=== PATIENT | female | born 1950 | race Caucasian/White ===

== ENCOUNTER 2020-06-16 07:08 | Day surgery (SDC) | payer MEDICARE ==
[2020-06-11 15:48] VITALS: BMI 26.6
[~2020-06-16 07:08] MED LIST: LACTATED RINGERS 1,000 ML IV SCH
[2020-06-16 07:45] VITALS: RESP 16; TEMP 99
[2020-06-16] MEDS ORDERED: LIDOCAINE 1% (10MG/ML) FOR IV START INTRADERMA ONE (07:55)
[2020-06-16] MEDS ORDERED: LIDOCAINE 1% INJ 10MG/ML (20 ML MDV) ONE (08:05)
[2020-06-16] MEDS ORDERED: PROPOFOL 10 MG/ML 20 ML VIAL IV ONE (08:05)
--- NOTE | 2020-06-16 08:08 | P.GSHP ---
History of Present Illness H&P Date: 06/16/20 Chief Complaint: GERD 69-year-old female having epigastric pain and reflux. Intermittent episodes of dysphagia. Episodes will last at times up to 1 week induration. Previous EGD showed moderate hiatal hernia. Past Medical History Past Medical History: GERD/Reflux, Hyperlipidemia, Hypertension Additional Past Medical History / Comment(s): hiatal hernia History of Any Multi-Drug Resistant Organisms: None Reported Past Surgical History: Joint Replacement Additional Past Surgical History / Comment(s): rectal prolapse, rt knee repl aced,jaleel cataracts Past Anesthesia/Blood Transfusion Reactions: No Reported Reaction Smoking Status: Former smoker - Past Family History Mother Family Medical History: No Reported History Medications and Allergies Home Medications Medication Instructions Recorded Confirmed Type Aspirin EC [Ecotrin Low Dose] 81 mg PO DAILY 06/11/20 06/11/20 History Fenofibrate [Lofibra] 160 mg PO DAILY 06/11/20 06/11/20 History LORazepam [Ativan] 1 mg PO BID 06/11/20 06/11/20 History Losartan [Cozaar] 50 mg PO QAM 06/11/20 06/11/20 History Metoclopramide [Reglan] 5 mg PO DAILY 06/11/20 06/11/20 History [place]-3 Fatty Acids/Fish Oil [Fish 1 each PO DAILY 06/11/20 06/11/20 History Oil 1,000 mg Softgel] Omeprazole 20 mg PO DAILY 06/11/20 06/11/20 History PARoxetine HCL [Paxil] 40 mg PO DAILY 06/11/20 06/11/20 History Sucralfate [Carafate] 1 gm PO TID 06/11/20 06/11/20 History Venlafaxine HCl [Effexor XR] 37.5 mg PO QAM 06/11/20 06/11/20 History Allergies Allergy/AdvReac Type Severity Reaction Status Date / Time amantadine [From Symmetrel] Allergy lip Verified 06/16/20 07:40 swelling Surgical - Exam Vital Signs Temp Pulse Resp BP Pulse Ox 99.0 F 73 16 153/86 95 06/16/20 07:42 06/16/20 07:42 06/16/20 07:42 06/16/20 07:42 06/16/20 07:42 Physical exam: General: Well-developed, well-nourished HEENT: Normocephalic, sclerae nonicteric Abdomen: Nontender, nondistended Extremities: No edema Neuro: Alert and oriented Assessment and Plan (1) GERD (gastroesophageal reflux disease) Narrative/Plan: Will proceed with upper endoscopy at this time Current Visit: Yes Status: Acute Code(s): K21.9 - GASTRO-ESOPHAGEAL REFLUX DISEASE WITHOUT ESOPHAGITIS SNOMED Code(s): 431367561
--- NOTE | 2020-06-16 08:17 | P.PCN ---
Date of Procedure: 06/16/20 Procedure(s) Performed: Preoperative Dx: GERD, epigastric pain Postoperative Dx: Moderate sized hiatal hernia, tortuous esophagus, mild gastritis Procedure: EGD with Bx Anesthesia: Sedation Endoscopist: Dr. Henry Specimens: Antrum Endoscopic Procedure: The patient was on the endoscopy table in the left de cubitus position. The Olympus gastroscope was inserted into the oropharynx and passed under direct visualization to the region of the third portion of the duodenum. From that point the scope was slowly withdrawn inspecting all surfaces carefully. There were no neoplastic inflammatory or polypoid lesions throughout the duodenum. The pylorus was widely patent. The stomach was carefully inspected. There was mild gastritis present. A biopsy of the antrum took place to rule out H. pylori. Retroflexion revealed a moderate sized hiatal hernia. The GE junction was present 5 cm above the diaphragmatic hiatus. The esophagus was free of inflammatory changes however did have significant tortuosity. The patient was then taken to the recovery room in stable condition per anesthesia guidelines. Recommendations: Await biopsy results. Continue antiacid therapy. Continue workup. Likely will proceed with CT chest and abdomen given the patient's complaints of pain lasting for 1 week at a time. Ultrasound abdomen if this has not already been performed to evaluate for gallstones as well. Will discuss surgical repair options with the patient regarding the hiatal hernia.
[2020-06-16 08:35] VITALS: BP 142/89; PULSE 63
== END 2020-06-16 09:00 | disposition home or self-care (01) ==
LOC: ORWHC2ENDO 07:08
PROVIDERS: ATTEND Surgery
DX: K29.50 Unspecified chronic gastritis without bleeding (principal); K44.9 Diaphragmatic hernia without obstruction or gangrene; Z90.710 Acquired absence of both cervix and uterus; Z98.890 Other specified postprocedural states; K21.9 Gastro-esophageal reflux disease without esophagitis; E78.5 Hyperlipidemia, unspecified; I10 Essential (primary) hypertension; Z98.42 Cataract extraction status, left eye; Z98.41 Cataract extraction status, right eye; Z96.651 Presence of right artificial knee joint; Z87.891 Personal history of nicotine dependence; Z79.82 Long term (current) use of aspirin; Z79.899 Other long term (current) drug therapy; Z88.3 Allergy status to other anti-infective agents
CPT/HCPCS: 88305; 43239; J2001; J2704

== ENCOUNTER → 2020-06-25 | Outpatient (CLI) | payer MEDICARE ==
--- NOTE | 2020-06-25 19:26 | CT ---
EXAMINATION TYPE: CT chest abdomen w con DATE OF EXAM: 06/25/2020 INDICATION: Abdominal pain COMPARISON: None CT DLP: 496.1 mGycm CONTRAST: Performed with Oral Contrast and with IV Contrast, patient injected with 100 mL of Isovue 300. TECHNIQUE: Axial images at 5 mm thick sections. Reconstructed images in the coronal plane. Delayed images through the kidneys. FINDINGS: CT CHEST: Portion of the thyroid visualized is normal. There is a 0.3 cm peripheral nodule anterior right lung. Series 4 image 17. No enlarged mediastinal or hilar adenopathy is evident. The ascending aorta diameter at the level of the main pulmonary artery is 2.1 cm. The main pulmonary artery diameter at the bifurcation is 2.4 cm. There is a moderate size hiatal hernia. Reflux into the distal esophagus is evident. CT ABDOMEN: Liver: Normal Spleen: Normal Pancreas: Normal Adrenal glands: The adrenal glands are normal. Gallbladder: Normal Kidneys: No masses are evident. No hydronephrosis is present. No cysts are present. Delayed images were obtained through the kidneys, which remain unremarkable. Aorta: Normal Inferior vena cava: Normal. Loops of bowel within the abdomen and upper pelvis are normal. There are loops of bowel which are incompletely distended or lack oral contrast limiting their evaluation. IMPRESSIONS: 1. Moderately large hiatal hernia with reflux into the distal esophagus. 2. 0.3 cm punctate peripheral pleural-based nodule right anterior lung. Follow-up exam in 6-12 months is recommended
== END | disposition home or self-care (01) ==
LOC: RADCTMAIN 08:12
PROVIDERS: ATTEND Surgery
DX: K44.9 Diaphragmatic hernia without obstruction or gangrene (principal); R91.1 Solitary pulmonary nodule
CPT/HCPCS: 82565; 84520; 71260; 74160; 36415; Q9967

== ENCOUNTER → 2020-07-20 | Outpatient (CLI) | payer MEDICARE | END | disposition home or self-care (01) | LOC: LABWHC1 09:58 | PROVIDERS: ATTEND Surgery | DX: Z20.828 Contact with and (suspected) exposure to other viral communicable diseases (principal) | CPT/HCPCS: U0003; C9803 ==

== ENCOUNTER 2020-08-04 12:24 | Inpatient (IN) | payer MEDICARE ==
--- NOTE | 2020-08-04 14:18 | XR ---
EXAMINATION TYPE: XR chest 2V DATE OF EXAM: 08/04/2020 COMPARISON: NONE HISTORY: Shortness of breath TECHNIQUE: Frontal and lateral views of the chest are obtained. FINDINGS: Scattered senescent parenchymal changes noted. Hyperinflation compatible with COPD. Patchy left perihilar and left lower lobe infiltrates suspicious for Covid 19 pneumonia. Heart size is stable. Mediastinal structures are stable and grossly unremarkable. No evidence for hilar prominence. Degenerative changes dorsal spine. IMPRESSION: 1. Patchy left perihilar and left lower lobe infiltrates suspicious for Covid 19 pneumonia.
[2020-08-04] MEDS ORDERED: SODIUM CHLORIDE 0.9% 500 ML 500 ML IV ONE (14:19)
[2020-08-04] MEDS ORDERED: LEVOFLOXACIN 750MG-D5W PMX 750 MG in DEXTROSE/WATER 1 150ML.BAG IVPB STA (14:27)
[2020-08-04] MEDS ORDERED: CEFEPIME 1 GM in SODIUM CHLORIDE 0.9% 50 ML IVPB STA (14:27)
[2020-08-04] MEDS ORDERED: VANCOMYCIN IV PER PHARMACY 1 EACH MISC MISCELLANE PRN (14:27)
[2020-08-04] MEDS ORDERED: VANCOMYCIN 1,250 MG in SODIUM CHLORIDE 0.9% 250 ML IVPB ONE (14:45)
--- NOTE | 2020-08-04 14:49 | ED ---
URI HPI - General Chief Complaint: Upper Respiratory Infection Stated Complaint: Nausea, vomiting, weakness Time Seen by Provider: 08/04/20 13:53 Source: patient Mode of arrival: wheelchair Limitations: no limitations - History of Present Illness Initial Comments: 69yo female wiht history of recent hiatal hernia repair 07/22 at [facility] referred there by Dr. Goodman presenting to the ER today for multiple complaints. Patient sates that since the surgery she has had vomiting when eating, diarrhea. Patient states that she had developed a cough as well 2 days after the surgery. Denies leg swelling, hemoptysis. admits to SOB at times. Denies chest pain or pain with deep inspiration. Pt states she has gradually become more and more weak. She denies syncope/presyncope. Denies recording fever but states she has had chills. Patient denies bloody stools, blood in vomit. Admits to some upper abdominal discomfort at time. Patient denies lower abdominal pain. Patient denies drainage from the incision site. Patient appears well nontoxic on arrival. However 92% oxygen levels. - Related Data Home Medications Medication Instructions Recorded Confirmed Aspirin EC [Ecotrin Low Dose] 81 mg PO DAILY 06/11/20 08/04/20 Fenofibrate [Lofibra] 160 mg PO DAILY 06/11/20 08/04/20 LORazepam [Ativan] 1 mg PO BID 06/11/20 08/04/20 Losartan [Cozaar] 50 mg PO QAM 06/11/20 08/04/20 Metoclopramide [Reglan] 5 mg PO DAILY 06/11/20 08/04/20 [place]-3 Fatty Acids/Fish Oil [Fish 1 each PO DAILY 06/11/20 08/04/20 Oil 1,000 mg Softgel] Omeprazole 20 mg PO DAILY 06/11/20 08/04/20 PARoxetine HCL [Paxil] 40 mg PO DAILY 06/11/20 08/04/20 Sucralfate [Carafate] 1 gm PO TID 06/11/20 08/04/20 Venlafaxine HCl [Effexor XR] 37.5 mg PO QAM 06/11/20 08/04/20 Acetaminophen Tab [Tylenol] 500 mg PO DAILY PRN 08/04/20 08/04/20 Allergies Allergy/AdvReac Type Severity Reaction Status Date / Time amantadine [From Symmetrel] Allergy lip Verified 08/04/20 16:15 swelling hydrocodone Allergy Itching Verified 08/04/20 16:15 Review of Systems ROS Statement: Those systems with pertinent positive or pertinent negative responses have been documented in the HPI. ROS Other: All systems not noted in ROS Statement are negative. Past Medical History Past Medical History: GERD/Reflux, Hyperlipidemia, Hypertension Additional Past Medical History / Comment(s): hiatal hernia History of Any Multi-Drug Resistant Organisms: None Reported Past Surgical History: Hernia Repair, Joint Replacement Additional Past Surgical History / Comment(s): rectal prolapse, rt knee replaced,jaleel cataracts Past Anesthesia/Blood Transfusion Reactions: No Reported Reaction Past Psychological History: Anxiety Smoking Status: Former smoker Past Alcohol Use History: None Reported Past Drug Use History: None Reported - Past Family History Mother Family Medical History: No Reported History General Exam - General Exam Comments Initial Comments: General: The patient is awake and alert, in no distress Eye: Pupils are equal, round and reactive to light, extra-ocular movements are intact. No nystagmus. There is normal conjunctiva bilaterally. No signs of icterus. Ears, nose, mouth and throat: There are moist mucous membranes and no oral lesions. Neck: The neck is supple, there is no tenderness or JVD. Cardiovascular: There is a regular rate and rhythm. No murmur, rub or gallop is appreciated. Respiratory: Lungs are clear to auscultation, respirations are non-labored, breath sounds are equal. No wheezes, stridor, rales, or rhonchi. Gastrointestinal: Soft, non-distended, non-tender abdomen without masses or organomegaly noted. There is no rebound or guarding present. Musculoskeletal: Normal ROM, no tenderness. Strength 5/5. Sensation intact. Radial pulses equal bilaterally 2+. Neurological: A&O x 3. CN II-XII intact, There are no obvious motor or sensory deficits. Coordination appears grossly intact. Speech is normal. Skin: Skin is warm and dry and no rashes or lesions are noted. Incision, no d rainage or redness. Psychiatric: Cooperative, appropriate mood & affect, normal judgment. Limitations: no limitations Course Vital Signs 08/04/20 08/04/20 13:09 15:41 Temperature 99.0 F Pulse Rate 91 Respiratory 22 16 Rate Blood Pressure 128/74 O2 Sat by Pulse 92 L Oximetry Medical Decision Making - Medical Decision Making Leukocytosis, PNA on CXR> CTA no PE. But concern for esophageal cancer/esophageal thicking/obstruction. [facility]. Spoke with Jalen patient surgeon reading report verbatim. He did not feel this was cancer/obstruction at this time. He recommen ded, liquid diet, raised bed during/after eating x 1 hours, counseling on slow eating, treatment of nausea, he refused transfer but provided phone number in further recommendations are needed [phone] (personal cell). Recommended admission here for treatment of aspiration pneumonia with speech on consult. patient agreeable to admission, did not want to be transferred is she didnt have to be. Dr. montelongo agreeable to care plan and admission. Spoke with accepting MARIA EUGENIA Jones. - Lab Data Result diagrams: 08/04/20 14:34 08/04/20 14:34 Lab Results 08/04/20 08/04/20 08/04/20 Range/Units 13:15 14:34 14:34 WBC 14.0 H (3.8-10.6) k/uL RBC 3.82 (3.80-5.40) m/uL Hgb 12.1 (11.4-16.0) gm/dL Hct 37.8 (34.0-46.0) % MCV 99.1 (80.0-100.0) fL MCH 31.8 (25.0-35.0) pg MCHC 32.1 (31.0-37.0) g/dL RDW 12.7 (11.5-15.5) % Plt Count 513 H (150-450) k/uL MPV 7.6 Neutrophils % 89 % Lymphocytes % 7 % Monocytes % 3 % Eosinophils % 0 % Basophils % 0 % Neutrophils # 12.5 H (1.3-7.7) k/uL Lymphocytes # 0.9 L (1.0-4.8) k/uL Monocytes # 0.4 (0-1.0) k/uL Eosinophils # 0.1 (0-0.7) k/uL Basophils # 0.0 (0-0.2) k/uL Hypochromasia Slight PT 10.9 (9.0-12.0) sec INR 1.1 (<1.2) APTT 30.7 H (22.0-30.0) sec Sodium (137-145) mmol/L Potassium (3.5-5.1) mmol/L Chloride (98-107) mmol/L Carbon Dioxide (22-30) mmol/L Anion Gap mmol/L BUN (7-17) mg/dL Creatinine (0.52-1.04) mg/dL Est GFR (CKD-EPI)AfAm (>60 ml/min/1.73 sqM) Est GFR (CKD-EPI)NonAf (>60 ml/min/1.73 sqM) Glucose (74-99) mg/dL Plasma Lactic Acid El (0.7-2.0) mmol/L Calcium (8.4-10.2) mg/dL Total Bilirubin (0.2-1.3) mg/dL AST (14-36) U/L ALT (4-34) U/L Alkaline Phosphatase (38-126) U/L Total Protein (6.3-8.2) g/dL Albumin (3.5-5.0) g/dL Coronavirus (PCR) Not Detected (Not Detectd) 08/04/20 08/04/20 Range/Units 14:34 14:34 WBC (3.8-10.6) k/uL RBC (3.80-5.40) m/uL Hgb (11.4-16.0) gm/dL Hct (34.0-46.0) % MCV (80.0-100.0) fL MCH (25.0-35.0) pg MCHC (31.0-37.0) g/dL RDW (11.5-15.5) % Plt Count (150-450) k/uL MPV Neutrophils % % Lymphocytes % % Monocytes % % Eosinophils % % Basophils % % Neutrophils # (1.3-7.7) k/uL Lymphocytes # (1.0-4.8) k/uL Monocytes # (0-1.0) k/uL Eosinophils # (0-0.7) k/uL Basophils # (0-0.2) k/uL Hypochromasia PT (9.0-12.0) sec INR (<1.2) APTT (22.0-30.0) sec Sodium 141 (137-145) mmol/L Potassium 4.0 (3.5-5.1) mmol/L Chloride 106 (98-107) mmol/L Carbon Dioxide 22 (22-30) mmol/L Anion Gap 13 mmol/L BUN 15 (7-17) mg/dL Creatinine 0.63 (0.52-1.04) mg/dL Est GFR (CKD-EPI)AfAm >90 (>60 ml/min/1.73 sqM) Est GFR (CKD-EPI)NonAf >90 (>60 ml/min/1.73 sqM) Glucose 138 H (74-99) mg/dL Plasma Lactic Acid El 1.4 (0.7-2.0) mmol/L Calcium 8.9 (8.4-10.2) mg/dL Total Bilirubin 0.5 (0.2-1.3) mg/dL AST 22 (14-36) U/L ALT 12 (4-34) U/L Alkaline Phosphatase 94 (38-126) U/L Total Protein 6.4 (6.3-8.2) g/dL Albumin 3.4 L (3.5-5.0) g/dL Coronavirus (PCR) (Not Detectd) Disposition Clinical Impression: Aspiration pneumonia, Esophageal thickening Disposition: ADMITTED IP TO THIS HOSP Condition: Stable Is patient prescribed a controlled substance at d/c from ED?: No Referrals: Daniel Herbert MD [Primary Care Provider] - 1-2 days Time of Disposition: 17:32 Decision to Admit Reason: Admit from EC Decision Date: 08/04/20 Decision Time: 17:32
[2020-08-04 15:00] LABS: Basophils % (A) 0 %; Eosinophils # (A) 0.1 k/uL (0-0.7); Eosinophils % (A) 0 %; HCT 37.8 % (34.0-46.0); HGB 12.1 gm/dL (11.4-16.0); Hypochromasia Slight; Lymphocytes # (A) 0.9 k/uL (1.0-4.8); Lymphocytes % (A) 7 %; MCH 31.8 pg (25.0-35.0); MCHC 32.1 g/dL (31.0-37.0); MCV 99.1 fL (80.0-100.0); Mean Platelet Volume 7.6; Monocytes # (A) 0.4 k/uL (0-1.0); Monocytes % (A) 3 %; Neutrophils # (A) 12.5 k/uL (1.3-7.7); Neutrophils % (A) 89 %; Platelet Count 513 k/uL (150-450); RBC 3.82 m/uL (3.80-5.40); RDW 12.7 % (11.5-15.5)
[2020-08-04 15:09] LABS: ALT 12 U/L (4-34); AST 22 U/L (14-36); African American GFR (CKD) >90 (>60 ml/min/1.73 sqM); Albumin 3.4 g/dL (3.5-5.0); Alkaline Phosphatase 94 U/L (38-126); Anion Gap 13 mmol/L; Blood Urea Nitrogen 15 mg/dL (7-17); Calcium 8.9 mg/dL (8.4-10.2); Carbon Dioxide 22 mmol/L (22-30); Chloride 106 mmol/L (98-107); Glucose 138 mg/dL (74-99); INR 1.1 (<1.2); Non-African American GFR(CKD) >90 (>60 ml/min/1.73 sqM); Partial Thromboplastin Time 30.7 sec (22.0-30.0); Prothrombin Time 10.9 sec (9.0-12.0); Sodium 141 mmol/L (137-145); Total Bilirubin 0.5 mg/dL (0.2-1.3); Total Protein 6.4 g/dL (6.3-8.2)
[2020-08-04] MEDS: SODIUM CHLORIDE 0.9% 1,000 ML IV SCH (15:27)
--- NOTE | 2020-08-04 16:03 | CT ---
EXAMINATION TYPE: CT chest angio for PE DATE OF EXAM: 08/04/2020 COMPARISON: 06/25/2020 HISTORY: 69-year-old female Fatigue, vomiting, s/p surgery TECHNIQUE: Contiguous axial scanning of the chest performed with IV Contrast, patient injected with 1 00 mL of Isovue 370. Coronal/sagittal MIP reconstructions performed. CT DLP: 329.2 mGycm Automated exposure control for dose reduction was used. FINDINGS: Heart normal size without pericardial effusion. No flattening of the interventricular septum reflux o f contrast into the hepatic veins. Aorta normal caliber with conventional arch vessel branching anatomy. While there is satisfactory opacification of the pulmonary artery system, the patient was breathing d uring the scan. No large central or lobar branch pulmonary bolus. Many of the segmental and more dist al arterial branches are largely nondiagnostic. There is fluid column within the thoracic esophagus. Pronounced circumferential wall thickening invol ving the distal half of the thoracic esophagus. Possible interval Thomas fundoplication. Esophageal lumen is dilated up to 4.3 cm wide but the overal l esophageal caliber measures up to 6.5 cm wide. Groundglass and reticular nodular opacities throughout the left lung and lesser degree of of groundgl ass changes within the right lung. No pleural effusion. Abdomen reported separately. Bones: No osseous destructive process. IMPRESSION: 1. FLUID COLUMN WITHIN THE ESOPHAGUS. THE DISTAL LUMEN IS DILATED UP TO 4.3 CM WIDE. CORRELATE FOR PO SSIBLE DISTAL ESOPHAGEAL OBSTRUCTION/STRICTURE. 2. GIVEN GROUNDGLASS AND RETICULONODULAR DENSITIES THROUGHOUT THE LEFT GREATER THAN RIGHT LUNGS, CONS IDER A SECONDARY ASPIRATION PNEUMONITIS. 3. WHILE THE ESOPHAGEAL LUMEN IS DILATED, THERE IS PRONOUNCED CIRCUMFERENTIAL WALL THICKENING WITH TH E ESOPHAGEAL CALIBER MEASURING UP TO 6.5 CM WIDE. SEVERE ESOPHAGITIS OR ESOPHAGEAL CANCER ARE IN THE DIFFERENTIAL. THE LATTER IS SOMEWHAT FAVORED. 4. QUERY INTERVAL THOMAS FUNDOPLICATION. 5. LIMITED ASSESSMENT FOR PULMONARY EMBOLUS. NO LARGE CENTRAL OR LOBAR BRANCH EMBOLUS. MANY OF THE SE GMENTAL AND MORE DISTAL ARTERIAL BRANCHES ARE NONDIAGNOSTIC DUE TO BREATHING MOTION.
--- NOTE | 2020-08-04 16:08 | CT ---
EXAMINATION TYPE: CT abdomen pelvis w con DATE OF EXAM: 08/04/2020 COMPARISON: 06/25/2020 HISTORY: 69-year-old female Nausea, vomiting, fatigue, cough, status post surgery TECHNIQUE: Contiguous axial scanning of the abdomen and pelvis following administration of 100 ml Iso st[place] 370 IV contrast. Delayed images through the kidneys and coronal/sagittal reconstructions perform ed. CT DLP: 830.9 mGycm Automated exposure control for dose reduction was used. FINDINGS: Chest reported separately. Suspect interval Thomas fundoplication. Abnormality within the visualized distal esophagus. Patchy ch anges left lung. No focal liver lesion or biliary ductal dilatation. Portal venous system is patent. Gallbladder, adrenal glands, kidneys, spleen with tiny anterior splenule, and pancreas appear within normal limits. No dilated small bowel, free fluid, or free air. No mesenteric or retroperitoneal lymphadenopathy. Normal appendix. No significant stool burden. Sigmoid diverticulosis. No pericolic inflammatory rosario e. Bladder is collapsed. Mild circumferential bladder wall thickening may relate to incomplete distentio n. Pelvic phlebolith. Uterus surgically absent. Neither ovary is visualized. No abnormal fluid collec tion in the pelvis or pelvic lymphadenopathy. Bones: Hypertrophic facet arthropathy mid to lower lumbar spine with grade 1 anterolisthesis L5-S1. A ccentuated lower lumbar lordosis. IMPRESSION: 1. NOTE SIGNIFICANT FINDINGS IN THE CHEST REPORTED SEPARATELY. CONCERN FOR INTERVAL THOMAS FUNDOPLICA TION BUT WITH A DISTAL ESOPHAGEAL CANCER CAUSING OBSTRUCTION AND SECONDARY ASPIRATION PNEUMONITIS. 2. SIGMOID DIVERTICULOSIS WITHOUT ACUTE DIVERTICULITIS. 3. MILD CIRCUMFERENTIAL BLADDER WALL THICKENING. CORRELATE TO EXCLUDE CYSTITIS.
[2020-08-04] MEDS ORDERED: NALOXONE 0.4 MG/ML 1 ML VIAL IV PRN (18:16)
[2020-08-05] MEDS: SODIUM CHLORIDE 0.9% 1,000 ML IV SCH ×3 (05:23→12:57)
[2020-08-05 06:20] VITALS: RESP 17
[2020-08-05] MEDS ORDERED: VANCOMYCIN 1,250 MG in SODIUM CHLORIDE 0.9% 250 ML IVPB SCH (07:00)
[2020-08-05] MEDS ORDERED: PIPERACILLIN-TAZOBACTAM 3.375 GM in SODIUM CHLORIDE 0.9% 100 ML IVPB STA (14:03)
--- NOTE | 2020-08-05 14:33 | P.HPIM ---
History of Present Illness Patient is a pleasant 69-year-old female came in with complaints of a shortness of breath. Cough. Some pleuritic chest pain whenever she coughs. Patient is found to have aspiration pneumonia patient was started on Zosyn. Patient had a recent hiatal hernia repair in numerous to [place]. Patient had a partial fundoplication. Patient denied any fever chills. Patient is saturating well today without rales and will ablate the patient if patient is clinically doing well will be discharged on Augmentin liquid. had a CT abdomen and pelvis which showed some bladder wall thickening and the patient also had a CT angios t he chest which showed a dilated 4.3 cm distal esophageal obstruction or stricture. 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 Patient is unable to tolerate the clear liquid diet. Patient here is able to tolerate full liquid diet after discussion with the gastroneurologist there plan is to continue with full liquid diet. Review of Systems REVIEW OF SYSTEMS: CONSTITUTIONAL: No fever, no malaise, no fatigue. HEENT: No recent visual problems or hearing problems. Denied any sore throat. CARDIOVASCULAR: No orthopnea, PND, no palpitations, no syncope. PULMONARY: no hemoptysis. GASTROINTESTINAL: No diarrhea, no nausea, no vomiting, no abdominal pain. NEUROLOGICAL: No headaches, no weakness, no numbness. HEMATOLOGICAL: Denies any bleeding or petechiae. GENITOURINARY: Denies any burning micturition, frequency, or urgency. MUSCULOSKELETAL/RHEUMATOLOGICAL: Denies any joint pain, swelling, or any muscle pain. ENDOCRINE: Denies any polyuria or polydipsia. The rest of the 14-point review of systems is negative. Past Medical History Past Medical History: GERD/Reflux, Hyperlipidemia, Hypertension Additional Past Medical History / Comment(s): HIATAL HERNIA History of Any Multi-Drug Resistant Organisms: None Reported Past Surgical History: Hernia Repair, Hysterectomy, Joint Replacement Additional Past Surgical History / Comment(s): rectal prolapse, rt knee replaced, jaleel cataracts, JUNE 2020 PARTIAL HIATAL HERNIA REPAIR AT [facility] Past Anesthesia/Blood Transfusion Reactions: No Reported Reaction Past Psychological History: Anxiety Smoking Status: Former smoker Past Alcohol Use History: None Reported Past Drug Use History: None Reported - Past Family History Mother Family Medical History: No Reported History Medications and Allergies Home Medications Medication Instructions Recorded Confirmed Type Aspirin EC [Ecotrin Low Dose] 81 mg PO DAILY 06/11/20 08/04/20 History Fenofibrate [Lofibra] 160 mg PO DAILY 06/11/20 08/04/20 History LORazepam [Ativan] 1 mg PO BID 06/11/20 08/04/20 History Losartan [Cozaar] 50 mg PO QAM 06/11/20 08/04/20 History Metoclopramide [Reglan] 5 mg PO DAILY 06/11/20 08/04/20 History [place]-3 Fatty Acids/Fish Oil [Fish 1 each PO DAILY 06/11/20 08/04/20 History Oil 1,000 mg Softgel] Omeprazole 20 mg PO DAILY 06/11/20 08/04/20 History PARoxetine HCL [Paxil] 40 mg PO DAILY 06/11/20 08/04/20 History Sucralfate [Carafate] 1 gm PO TID 06/11/20 08/04/20 History Venlafaxine HCl [Effexor XR] 37.5 mg PO QAM 06/11/20 08/04/20 History Acetaminophen Tab [Tylenol] 500 mg PO DAILY PRN 08/04/20 08/04/20 History Amoxic-Pot Clav 600-42.9MG/5Ml 7.5 ml PO Q12H #100 ml 08/05/20 Rx [Augmentin 600-42.9 mg/5 ml Liquid] Guaifenesin/Dextromethorphan 5 ml PO QID PRN #1 bottle 08/05/20 Rx [Robitussin Cough-Chest Dm Liq] Allergies Allergy/AdvReac Type Severity Reaction Status Date / Time amantadine [From Symmetrel] Allergy lip Verified 08/04/20 16:15 swelling hydrocodone Allergy Itching Verified 08/04/20 16:15 Physical Exam Vitals: Vital Signs Temp Pulse Pulse Resp BP BP Pulse Ox 08/05/20 07:55 97 F L 71 17 152/88 98 08/05/20 06:00 98.9 F 68 17 143/77 95 08/04/20 22:36 98.5 F 80 16 154/69 97 08/04/20 18:05 80 16 177/84 96 08/04/20 15:41 16 Intake and Output 08/04/20 08/05/20 08/05/20 22:59 06:59 14:59 Other: # Voids 1 Weight 67.585 kg PHYSICAL EXAMINATION: GENERAL: The patient is alert and oriented x3, not in any acute distress. Well developed, well nourished. HEENT: Pupils are round and equally reacting to light. EOMI. No scleral icterus. No conjunctival pallor. Normocephalic, atraumatic. No pharyngeal erythema. No th yromegaly. CARDIOVASCULAR: S1 and S2 present. No murmurs, rubs, or gallops. PULMONARY: Chest is clear to auscultation, no wheezing or crackles. ABDOMEN: Soft, nontender, nondistended, normoactive bowel sounds. No palpable organomegaly. MUSCULOSKELETAL: No joint swelling or deformity. EXTREMITIES: No cyanosis, clubbing, or pedal edema. NEUROLOGICAL: Gross neurological examination did not reveal any focal deficits. SKIN: No rashes. Results CBC & Chem 7: 08/04/20 14:34 08/04/20 14:34 Labs: Abnormal Lab Results - Last 24 Hours (Table) 08/04/20 08/04/20 08/04/20 Range/Units 14:34 14:34 14:34 WBC 14.0 H (3.8-10.6) k/uL Plt Count 513 H (150-450) k/uL Neutrophils # 12.5 H (1.3-7.7) k/uL Lymphocytes # 0.9 L (1.0-4.8) k/uL APTT 30.7 H (22.0-30.0) sec Glucose 138 H (74-99) mg/dL Albumin 3.4 L (3.5-5.0) g/dL Thrombosis Risk Factor Assmnt - Choose All That Apply Each Factor Represents 1 point: Obesity (BMI >25) Each Risk Factor Represents 2 Points: Age 61-74 years Thrombosis Risk Factor Assessment Total Risk Factor Score: 3 Thrombosis Risk Factor Assessment Level: Moderate Risk Assessment and Plan Plan: -Aspiration pneumonia: The patient is pretty status is better patient will be discharged today on the Augmentin for total duration of 7 days. We'll prescribe her Augmentin liquid because of her intolerance to pills and solid diet. Patient will remain on full liquid diet which she is able to tolerate right now. Patient was evaluated by speech therapy but the head main issue is distal esophageal obstruction/stricture for which patient will follow-up with gastroe nterologist and he was to [place] next week. --Distal esophageal obstruction with recent partial fundoplication -Gastroesophageal reflux disease -Hyperlipidemia -Hypertension -Anxiety disorder
--- NOTE | 2020-08-05 14:34 | P.DS ---
Providers Date of admission: 08/04/20 18:20 Attending physician: Colt Veronica Primary care physician: Daniel Herbert [facility] Course: Please afford to my history of present illness for further details Patient Condition at Discharge: Stable Plan - Discharge Summary New Discharge Prescriptions: New Amoxic-Pot Clav 600-42.9MG/5Ml [Augmentin 600-42.9 mg/5 ml Liquid] 7.5 ml PO Q12H #100 ml Guaifenesin/Dextromethorphan [Robitussin Cough-Chest Dm Liq] 5 ml PO QID PRN #1 bottle PRN Reason: Cough Continue LORazepam [Ativan] 1 mg PO BID Aspirin EC [Ecotrin Low Dose] 81 mg PO DAILY Sucralfate [Carafate] 1 gm PO TID PARoxetine HCL [Paxil] 40 mg PO DAILY Metoclopramide [Reglan] 5 mg PO DAILY Losartan [Cozaar] 50 mg PO QAM Venlafaxine HCl [Effexor XR] 37.5 mg PO QAM Omeprazole 20 mg PO DAILY Fenofibrate [Lofibra] 160 mg PO DAILY [place]-3 Fatty Acids/Fish Oil [Fish Oil 1,000 mg Softgel] 1 each PO DAILY Acetaminophen Tab [Tylenol] 500 mg PO DAILY PRN PRN Reason: Pain Discharge Medication List Aspirin EC [Ecotrin Low Dose] 81 mg PO DAILY 06/11/20 [History] Fenofibrate [Lofibra] 160 mg PO DAILY 06/11/20 [History] LORazepam [Ativan] 1 mg PO BID 06/11/20 [History] Losartan [Cozaar] 50 mg PO QAM 06/11/20 [History] Metoclopramide [Reglan] 5 mg PO DAILY 06/11/20 [History] [place]-3 Fatty Acids/Fish Oil [Fish Oil 1,000 mg Softgel] 1 each PO DAILY 06/11/20 [History] Omeprazole 20 mg PO DAILY 06/11/20 [History] PARoxetine HCL [Paxil] 40 mg PO DAILY 06/11/20 [History] Sucralfate [Carafate] 1 gm PO TID 06/11/20 [History] Venlafaxine HCl [Effexor XR] 37.5 mg PO QAM 06/11/20 [History] Acetaminophen Tab [Tylenol] 500 mg PO DAILY PRN 08/04/20 [History] Amoxic-Pot Clav 600-42.9MG/5Ml [Augmentin 600-42.9 mg/5 ml Liquid] 7.5 ml PO Q12H #100 ml 08/05/20 [Rx] Guaifenesin/Dextromethorphan [Robitussin Cough-Chest Dm Liq] 5 ml PO QID PRN #1 bottle 08/05/20 [Rx] Follow up Appointment(s)/Referral(s): Daniel Herbert MD [Primary Care Provider] - 3 Days Discharge Disposition: HOME SELF-CARE
[2020-08-05 15:42] VITALS: PULSE 69; TEMP 98.9
[2020-08-05 16:01] VITALS: BP 168/79
[2020-08-06] MEDS ORDERED: VANCOMYCIN TROUGH DUE 1 EACH MISC MISCELLANE ONE (06:00)
== END 2020-08-05 16:56 | disposition home or self-care (01) | DRG 179 ==
LOC: EC 12:24 → 4SSUR 18:20
PROVIDERS: ADMIT Hospitalist; ATTEND Hospitalist
DX: J69.0 Pneumonitis due to inhalation of food and vomit (principal); K22.2 Esophageal obstruction; Z20.828 Contact with and (suspected) exposure to other viral communicable diseases; K21.9 Gastro-esophageal reflux disease without esophagitis; E78.5 Hyperlipidemia, unspecified; I10 Essential (primary) hypertension; F41.9 Anxiety disorder, unspecified; Z79.82 Long term (current) use of aspirin; Z79.899 Other long term (current) drug therapy; Z87.891 Personal history of nicotine dependence; Z87.19 Personal history of other diseases of the digestive system; Z96.651 Presence of right artificial knee joint; Z98.42 Cataract extraction status, left eye; Z98.41 Cataract extraction status, right eye; Z90.710 Acquired absence of both cervix and uterus; Z87.42 Personal history of other diseases of the female genital tract; Z98.890 Other specified postprocedural states; Z88.5 Allergy status to narcotic agent; Z88.8 Allergy status to other drugs, medicaments and biological substances
CPT/HCPCS: 36415; 71046; 71275; 74177; 80053; 83605; 85025; 85610; 85730; 87040; 87635; 93005; 96361; 96365; 96366; 96367; 96375; 99285

== ENCOUNTER 2020-08-12 09:26 | Emergency (ER) | payer MEDICARE ==
[2020-08-12] MEDS ORDERED: SODIUM CHLORIDE 0.9% 1,000 ML IV STA (10:02)
[2020-08-12 10:22] LABS: Basophils % (A) 0 %; Eosinophils # (A) 0.1 k/uL (0-0.7); Eosinophils % (A) 1 %; HCT 42.4 % (34.0-46.0); HGB 13.8 gm/dL (11.4-16.0); Lymphocytes # (A) 1.2 k/uL (1.0-4.8); Lymphocytes % (A) 11 %; MCH 31.6 pg (25.0-35.0); MCHC 32.5 g/dL (31.0-37.0); Mean Platelet Volume 7.6; Monocytes # (A) 0.4 k/uL (0-1.0); Monocytes % (A) 3 %; Neutrophils # (A) 9.2 k/uL (1.3-7.7); Neutrophils % (A) 83 %; Platelet Count 488 k/uL (150-450); RBC 4.37 m/uL (3.80-5.40); RDW 13.3 % (11.5-15.5); WBC 11.1 k/uL (3.8-10.6)
--- NOTE | 2020-08-12 10:23 | XR ---
EXAMINATION TYPE: XR chest 2V DATE OF EXAM: 08/12/2020 COMPARISON: 08/04/2020 HISTORY: Shortness of breath TECHNIQUE: Frontal and lateral views of the chest are obtained. FINDINGS: Scattered senescent parenchymal changes noted. Hyperinflation compatible with COPD. Much improved infiltrate left perihilar and left lower lobe regions with mild linear residual or atel ectasis persisting. Heart size is stable. Mediastinal structures are stable and grossly unremarkable. No evidence for hilar prominence. Degenerative changes dorsal spine. IMPRESSION: 1. Much improved infiltrate left perihilar and left lower lobe regions with mild linear residual or a telectasis persisting.
[2020-08-12 10:24] LABS: ALT 14 U/L (4-34); AST 26 U/L (14-36); African American GFR (CKD) >90 (>60 ml/min/1.73 sqM); Albumin 3.7 g/dL (3.5-5.0); Alkaline Phosphatase 81 U/L (38-126); Anion Gap 7 mmol/L; Blood Urea Nitrogen 8 mg/dL (7-17); Calcium 9.2 mg/dL (8.4-10.2); Carbon Dioxide 21 mmol/L (22-30); Chloride 110 mmol/L (98-107); Glucose 131 mg/dL (74-99); Magnesium 1.8 mg/dL (1.6-2.3); Non-African American GFR(CKD) >90 (>60 ml/min/1.73 sqM); Potassium 4.2 mmol/L (3.5-5.1); Sodium 138 mmol/L (137-145); Total Bilirubin 0.4 mg/dL (0.2-1.3); Total Protein 6.7 g/dL (6.3-8.2)
--- NOTE | 2020-08-12 10:35 | ED ---
General Adult HPI - General Chief complaint: Shortness of Breath Stated complaint: weakness/SOB Time Seen by Provider: 08/12/20 09:50 Source: patient, RN notes reviewed Mode of arrival: ambulatory Limitations: no limitations - History of Present Illness Initial comments: This a 69-year-old female presents emergency Department chief complaint of generalized weakness, fatigue. Patient states that she was recently admitted for pneumonia was placed on oral antibiotics upon discharge. She states that she only has a day left and states that she feels like it's not resolved. She does have some mild shortness of breath. Patient does admit that she's not been eating and drinking as well as usual she does admit that she had a hiatal hernia surgery at the [facility] states that she's been on restricted diet. Patient denies chest pain, headache or dizziness. - Related Data Home Medications Medication Instructions Recorded Confirmed Aspirin EC [Ecotrin Low Dose] 81 mg PO DAILY 06/11/20 08/12/20 Fenofibrate [Lofibra] 160 mg PO DAILY 06/11/20 08/12/20 LORazepam [Ativan] 1 mg PO BID 06/11/20 08/12/20 Losartan [Cozaar] 50 mg PO QAM 06/11/20 08/12/20 Metoclopramide [Reglan] 5 mg PO DAILY 06/11/20 08/12/20 [place]-3 Fatty Acids/Fish Oil [Fish 1 cap PO DAILY 06/11/20 08/12/20 Oil 1,000 mg Softgel] Omeprazole 20 mg PO DAILY 06/11/20 08/12/20 PARoxetine HCL [Paxil] 40 mg PO DAILY 06/11/20 08/12/20 Sucralfate [Carafate] 1 gm PO TID 06/11/20 08/12/20 Venlafaxine HCl [Effexor XR] 37.5 mg PO QAM 06/11/20 08/12/20 Acetaminophen Tab [Tylenol] 500 mg PO DAILY PRN 08/04/20 08/12/20 Previous Rx's Medication Instructions Recorded Amoxic-Pot Clav 600-42.9MG/5Ml 7.5 ml PO Q12H #100 ml 08/05/20 [Augmentin 600-42.9 mg/5 ml Liquid] Guaifenesin/Dextromethorphan 5 ml PO QID PRN #1 bottle 08/05/20 [Robitussin Cough-Chest Dm Liq] Allergies Allergy/AdvReac Type Severity Reaction Status Date / Time amantadine [From Symmetrel] Allergy lip Verified 08/12/20 11:14 swelling hydrocodone Allergy Itching Verified 08/12/20 11:14 Review of Systems ROS Statement: Those systems with pertinent positive or pertinent negative responses have been documented in the HPI. ROS Other: All systems not noted in ROS Statement are negative. Past Medical History Past Medical History: GERD/Reflux, Hyperlipidemia, Hypertension, Pneumonia Additional Past Medical History / Comment(s): HIATAL HERNIA History of Any Multi-Drug Resistant Organisms: None Reported Past Surgical History: Hernia Repair, Hysterectomy, Joint Replacement Additional Past Surgical History / Comment(s): rectal prolapse, rt knee replaced, jaleel cataracts, JUNE 2020 PARTIAL HIATAL HERNIA REPAIR AT [facility] Past Anesthesia/Blood Transfusion Reactions: No Reported Reaction Past Psychological History: Anxiety Smoking Status: Former smoker Past Alcohol Use History: None Reported Past Drug Use History: None Reported - Past Family History Mother Family Medical History: No Reported History General Exam Limitations: no limitations General appearance: alert, in no apparent distress Head exam: Present: atraumatic, normocephalic, normal inspection Eye exam: Present: normal appearance, PERRL, EOMI. Absent: scleral icterus, conjunctival injection, periorbital swelling ENT exam: Present: normal exam, normal oropharynx, mucous membranes moist Neck exam: Present: normal inspection, full ROM. Absent: tenderness, meningismus, lymphadenopathy Respiratory exam: Present: normal lung sounds bilaterally. Absent: respiratory distress, wheezes, rales, rhonchi, stridor Cardiovascular Exam: Present: regular rate, normal rhythm, normal heart sounds. Absent: systolic murmur, diastolic murmur, rubs, gallop, clicks GI/Abdominal exam: Present: soft, normal bowel sounds. Absent: distended, tenderness, guarding, rebound, rigid Neurological exam: Present: alert, oriented X3 Skin exam: Present: warm, dry, intact, normal color. Absent: rash Course Vital Signs 08/12/20 08/12/20 08/12/20 09:31 11:30 12:30 Temperature 98.9 F 98.3 F Pulse Rate 74 62 62 Respiratory 18 18 16 Rate Blood Pressure 141/84 168/88 172/93 O2 Sat by Pulse 99 97 97 Oximetry EKG Findings - EKG Comments: EKG Findings:: EKG performed at 9:41 normal sinus rhythm with a rate of 69 RI 140 QRS 72 QT status QTC 4:30 6469 there are no acute changes from prior EKG performed on 08/04/2020 Medical Decision Making - Medical Decision Making Chest x-ray shows improving pneumonia. Patient labs are essentially unremarka ble. Patient discharged stable condition. - Lab Data Result diagrams: 08/12/20 10:03 08/12/20 10:03 Lab Results 08/12/20 08/12/20 08/12/20 Range/Units 10:03 10:03 10:03 WBC 11.1 H (3.8-10.6) k/uL RBC 4.37 (3.80-5.40) m/uL Hgb 13.8 (11.4-16.0) gm/dL Hct 42.4 (34.0-46.0) % MCV 97.0 (80.0-100.0) fL MCH 31.6 (25.0-35.0) pg MCHC 32.5 (31.0-37.0) g/dL RDW 13.3 (11.5-15.5) % Plt Count 488 H (150-450) k/uL MPV 7.6 Neutrophils % 83 % Lymphocytes % 11 % Monocytes % 3 % Eosinophils % 1 % Basophils % 0 % Neutrophils # 9.2 H (1.3-7.7) k/uL Lymphocytes # 1.2 (1.0-4.8) k/uL Monocytes # 0.4 (0-1.0) k/uL Eosinophils # 0.1 (0-0.7) k/uL Basophils # 0.0 (0-0.2) k/uL PT 11.0 (9.0-12.0) sec INR 1.1 (<1.2) APTT 26.0 (22.0-30.0) sec Sodium (137-145) mmol/L Potassium (3.5-5.1) mmol/L Chloride (98-107) mmol/L Carbon Dioxide (22-30) mmol/L Anion Gap mmol/L BUN (7-17) mg/dL Creatinine (0.52-1.04) mg/dL Est GFR (CKD-EPI)AfAm (>60 ml/min/1.73 sqM) Est GFR (CKD-EPI)NonAf (>60 ml/min/1.73 sqM) Glucose (74-99) mg/dL Plasma Lactic Acid El (0.7-2.0) mmol/L Calcium (8.4-10.2) mg/dL Magnesium (1.6-2.3) mg/dL Total Bilirubin (0.2-1.3) mg/dL AST (14-36) U/L ALT (4-34) U/L Alkaline Phosphatase (38-126) U/L Troponin I (0.000-0.034) ng/mL Total Protein (6.3-8.2) g/dL Albumin (3.5-5.0) g/dL Urine Color Light Yellow Urine Appearance Clear (Clear) Urine pH 7.0 (5.0-8.0) Ur Specific [place] 1.010 (1.001-1.035) Urine Protein Negative (Negative) Urine Glucose (UA) Negative (Negative) Urine Ketones Negative (Negative) Urine Blood Negative (Negative) Urine Nitrite Negative (Negative) Urine Bilirubin Negative (Negative) Urine Urobilinogen <2.0 (<2.0) mg/dL Ur Leukocyte Esterase Moderate H (Negative) Urine RBC 2 (0-5) /hpf Urine WBC 4 (0-5) /hpf Ur Squamous Epith Cells 1 (0-4) /hpf Urine Bacteria Rare H (None) /hpf Urine Mucus Rare H (None) /hpf 08/12/20 08/12/20 08/12/20 Range/Units 10:03 10:03 10:03 WBC (3.8-10.6) k/uL RBC (3.80-5.40) m/uL Hgb (11.4-16.0) gm/dL Hct (34.0-46.0) % MCV (80.0-100.0) fL MCH (25.0-35.0) pg MCHC (31.0-37.0) g/dL RDW (11.5-15.5) % Plt Count (150-450) k/uL MPV Neutrophils % % Lymphocytes % % Monocytes % % Eosinophils % % Basophils % % Neutrophils # (1.3-7.7) k/uL Lymphocytes # (1.0-4.8) k/uL Monocytes # (0-1.0) k/uL Eosinophils # (0-0.7) k/uL Basophils # (0-0.2) k/uL PT (9.0-12.0) sec INR (<1.2) APTT (22.0-30.0) sec Sodium 138 (137-145) mmol/L Potassium 4.2 (3.5-5.1) mmol/L Chloride 110 H (98-107) mmol/L Carbon Dioxide 21 L (22-30) mmol/L Anion Gap 7 mmol/L BUN 8 (7-17) mg/dL Creatinine 0.55 (0.52-1.04) mg/dL Est GFR (CKD-EPI)AfAm >90 (>60 ml/min/1.73 sqM) Est GFR (CKD-EPI)NonAf >90 (>60 ml/min/1.73 sqM) Glucose 131 H (74-99) mg/dL Plasma Lactic Acid El 1.7 (0.7-2.0) mmol/L Calcium 9.2 (8.4-10.2) mg/dL Magnesium 1.8 (1.6-2.3) mg/dL Total Bilirubin 0.4 (0.2-1.3) mg/dL AST 26 (14-36) U/L ALT 14 (4-34) U/L Alkaline Phosphatase 81 (38-126) U/L Troponin I <0.012 (0.000-0.034) ng/mL Total Protein 6.7 (6.3-8.2) g/dL Albumin 3.7 (3.5-5.0) g/dL Urine Color Urine Appearance (Clear) Urine pH (5.0-8.0) Ur Specific [place] (1.001-1.035) Urine Protein (Negative) Urine Glucose (UA) (Negative) Urine Ketones (Negative) Urine Blood (Negative) Urine Nitrite (Negative) Urine Bilirubin (Negative) Urine Urobilinogen (<2.0) mg/dL Ur Leukocyte Esterase (Negative) Urine RBC (0-5) /hpf Urine WBC (0-5) /hpf Ur Squamous Epith Cells (0-4) /hpf Urine Bacteria (None) /hpf Urine Mucus (None) /hpf Disposition Clinical Impression: Pneumonia, Fatigue, Dehydration Disposition: HOME SELF-CARE Condition: Stable Instructions (If sedation given, give patient instructions): Fatigue (ED) Additional Instructions: Please return to the Emergency Department if symptoms worsen or any other concerns. Is patient prescribed a controlled substance at d/c from ED?: No Referrals: Daniel Herbert MD [Primary Care Provider] - 1-2 days
[2020-08-12 10:39] LABS: INR 1.1 (<1.2)
[2020-08-12 12:44] LABS: Appearance,Urine Clear (Clear); Bacteria,Urine Rare /hpf; Bilirubin,Urine Negative (Negative); Blood,Urine Negative (Negative); Color,Urine Light Yellow; Glucose,Urine (UA) Negative (Negative); Ketones,Urine Negative (Negative); Leukocyte Esterase,Urine Moderate (Negative); Mucus,Urine Rare /hpf; Nitrite,Urine Negative (Negative); Protein,Urine Negative (Negative); RBC,Urine 2 /hpf (0-5); Squamous Epithelial Cell,Urine 1 /hpf (0-4); Urobilinogen,Urine <2.0 mg/dL (<2.0); WBC,Urine 4 /hpf (0-5)
[2020-08-12 13:49] VITALS: BP 170/89; PULSE 68; RESP 18; TEMP 98.2
== END 2020-08-12 13:48 | disposition home or self-care (01) ==
LOC: EC 09:26
DX: J18.9 Pneumonia, unspecified organism (principal); E86.0 Dehydration; K21.9 Gastro-esophageal reflux disease without esophagitis; I10 Essential (primary) hypertension; E78.5 Hyperlipidemia, unspecified; F41.9 Anxiety disorder, unspecified; Z79.899 Other long term (current) drug therapy; Z88.5 Allergy status to narcotic agent; Z88.8 Allergy status to other drugs, medicaments and biological substances; Z87.891 Personal history of nicotine dependence
CPT/HCPCS: 36415; 71046; 80053; 81001; 83605; 83735; 83880; 84484; 85025; 85610; 85730; 93005; 96360; 96361; 99285

== ENCOUNTER 2021-02-12 11:31 | Day surgery (SDC) | payer MEDICARE ==
[2021-02-09 13:44] VITALS: BMI 23.1
[2021-02-12 11:53] VITALS: TEMP 98.2
[2021-02-12] MEDS ORDERED: LIDOCAINE 1% INJ 10MG/ML (20 ML MDV) ONE (12:29)
[2021-02-12] MEDS ORDERED: PROPOFOL 10 MG/ML 20 ML VIAL IV ONE (12:29)
--- NOTE | 2021-02-12 12:49 | P.PCN ---
Date of Procedure: 02/12/21 Procedure(s) Performed: BRIEF HISTORY: Patient is a 62-year-old, pleasant, white female scheduled for an upper endoscopy as a part of evaluation of progressive dysphagia to solids for the last 6 months duration. She underwent Norberto fundoplication in June 2020 at [facility]. Since then she is been having dysphagia, passive regurgitation, nausea vomiting. She lost about 30 pounds since onset of the symptoms. She is hence scheduled for an upper endoscopy to evaluate further.. PROCEDURE PERFORMED: Esophagogastroduodenoscopy with Dilation. PREOPERATIVE DIAGNOSIS: Nausea/vomiting/progressive dysphagia to solids for the last 6 months duration and weight loss of 30 pounds. IV sedation per anesthesia. PROCEDURE: After informed consent was obtained, the patient was brought into the endoscopy unit. IV sedation was administered by Anesthesia under continuous monitoring. Initially the Olympus GIF-140 video endoscope was inserted into the mouth. Esophagus intubated without any difficulty. It was gradually advanced into the stomach and duodenum and carefully examined. The bulb and the second part of the duodenum appeared normal. The scope at this time was withdrawn to the stomach, adequately insufflated with air, and upon careful examination, mucosa of the antrum, body, cardia and the fundus appeared normal. There was moderate amount of retained food in the stomach suggestive of gastroparesis. No evidence of gastric outlet obstruction. The scope was then withdrawn into the esophagus. The GE junction was located at 41 cm from the incisors. The lower esophagus into was tight but there was no obvious stricture identified. 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 At this time I proceeded with upper dilation of the lower esophageal sphincter using 18-20 mm TTS balloon in a sequential fashion for 60 seconds. The rest of the esophagus appeared normal. However there was some indication of esophageal dysmotility noted. There were no erosions or ulcerations seen and the patient tolerated the procedure well. IMPRESSION: 1. Tight lower esophageal sphincter secondary to Norberto fundoplication, located at the acute angle with a tortuous distal esophagus ,status post balloon dilation using 18-20 mm balloon as described above. 2.. Retained food in the stomach suggestive of gastroparesis. RECOMMENDATIONS: The findings of this examination were discussed with the patient as well as a family. She was advised to be on a clear liquid diet for today. Will monitor her symptoms closely. If she continues remains asymptomatic will schedule her for a esophageal manometry to eEvaluate further.
[2021-02-12 13:02] VITALS: BP 138/86; PULSE 66; RESP 18
== END 2021-02-12 13:23 | disposition home or self-care (01) ==
LOC: ORWHC2ENDO 11:31
PROVIDERS: ATTEND Internal Medicine Gastroenterology
DX: K22.8 Other specified diseases of esophagus (principal); R13.10 Dysphagia, unspecified; Z79.82 Long term (current) use of aspirin; Z79.899 Other long term (current) drug therapy; Z98.890 Other specified postprocedural states; I10 Essential (primary) hypertension; E78.5 Hyperlipidemia, unspecified; K21.9 Gastro-esophageal reflux disease without esophagitis; Z88.5 Allergy status to narcotic agent; Z88.8 Allergy status to other drugs, medicaments and biological substances
CPT/HCPCS: 43249; J2001; J2704; C1726

== ENCOUNTER → 2021-02-17 | Outpatient (CLI) | payer MEDICARE ==
[2021-02-17 11:57] LABS: African American GFR (CKD) >90 (>60 ml/min/1.73 sqM); Blood Urea Nitrogen 19 mg/dL (7-17); Non-African American GFR(CKD) 79 (>60 ml/min/1.73 sqM)
--- NOTE | 2021-02-17 14:20 | CT ---
EXAMINATION TYPE: CT chest w con DATE OF EXAM: 02/17/2021 COMPARISON: 08/04/2020 and 06/25/2020 HISTORY: 70-year-old female SPN TECHNIQUE: Contiguous axial scanning of the chest after the administration of 100 ml mL of Isovue 300 . Coronal/sagittal reconstructions performed. CT DLP: 190.90mGycm. Automatic exposure control utilized for a dose reduction. FINDINGS: Heart normal size without pericardial effusion. Aorta normal caliber with conventional branching anatomy. No thoracic lymphadenopathy by CT size criteria. There remains some irregularity and thickening of the distal esophagus though decreased from prior ex am and with resolution of previous abnormal dilated fluid-filled esophagus. Stable 3 mm subpleural pulmonary nodule anterior right upper lobe, axial image 17. A couple 4 mm pulmonary nodules at the left mid lung along the major fissure are unchanged, axial gareth ge 25. Minimal right apical pleural parenchymal scarring. No consolidation or pleural effusion. Resolution of the previous left-sided infiltrates from 08/04/20 20. Stable thickening of the left adrenal gland. Bones: Degenerative grade 1 retrolisthesis L1-L2. No osseous destructive process. IMPRESSION: 1. The abnormal esophageal dilatation seen previously has resolved. Some irregularity and mild thicke olegario remains at the distal esophagus. Correlate with any known diagnosis. 2. A few small pulmonary nodules measuring less than 4 mm remain unchanged from 06/25/2020 suggesting a benign etiology.
== END | disposition home or self-care (01) ==
LOC: RADCTMAIN 11:14
PROVIDERS: ATTEND Physician Assistant
DX: R91.8 Other nonspecific abnormal finding of lung field (principal); K22.8 Other specified diseases of esophagus
CPT/HCPCS: 82565; 84520; 71260; 36415; Q9967

== ENCOUNTER 2022-02-04 06:10 | Day surgery (SDC) | payer MEDICARE ==
[2022-02-02 15:45] VITALS: BMI 24.9
[~2022-02-04 06:10] MED LIST changes: +LIDOCAINE 1% (10MG/ML) FOR IV START INTRADERMA PRN
[2022-02-04 06:57] VITALS: RESP 16; TEMP 98.5
[2022-02-04] MEDS ORDERED: PROPOFOL 10 MG/ML 20 ML VIAL IV ONE (07:15)
--- NOTE | 2022-02-04 07:39 | P.PCN ---
Date of Procedure: 02/04/22 Procedure(s) Performed: BRIEF HISTORY: Patient is a 71-year-old, pleasant, white female scheduled for an upper endoscopy as a part of evaluation of progressive dysphagia to certain liquids and solids for the last several months duration. She has underwent Norberto fundoplication in June 2020 at [facility] for a large hiatal hernia. Subsequently she developed severe dysphagia and last upper endoscopy done by me in January 2021 revealed a tight lower esophageal sphincter with esophageal dysmotility and tortuous distal esophagus. Lately has been having worsening symptoms and history of an upper endoscopy with a balloon dilation.. PROCEDURE PERFORMED: Esophagogastroduodenoscopy with balloon dilation. PREOPERATIVE DIAGNOSIS: Progressive dysphagia to liquids and solids of several months duration. IV sedation per anesthesia. PROCEDURE: After informed consent was obtained, the patient was brought into the endoscopy unit. IV sedation was administered by Anesthesia under continuous monitoring. Initially the Olympus GIF-140 video endoscope was inserted into the mouth. Esophagus intubated without any difficulty. It was gradually advanced into the stomach and duodenum and carefully examined. The bulb and the second part of the duodenum appeared normal. The scope at this time was withdrawn to the stomach, adequately insufflated with air, and upon careful examination, mucosa of the antrum, appeared normal. This was large amount of food retained in the body the stomach consistent with gastroparesis with no evidence of gastric outlet obstruction. Mucosa of the body, cardia and the fundus appeared normal. The scope was then withdrawn into the esophagus. The GE junction was lo cated at 39 cm from the incisors. The lower esophageal sphincter appeared slightly tight but there was no evidence of esophageal stricture noted. Evidence of esophageal dysmotility seen. 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 At this time I proceeded with empiric dilation using 18-20 mm TTS balloon in a sequential fashion for 60 seconds. The mucosa of the rest of esophagus appeared normal. There were no erosions or ulcerations seen. Patient tolerated the procedure well. IMPRESSION: 1. Esophageal dysmotility with tight lower esophagus sphincter but no obvious stricture status post balloon dilation using 18-20 mm TTS balloon as described above. 2. Moderate amount of retained food in the stomach suggestive of gastroparesis. RECOMMENDATIONS: The findings of this examination were discussed with the patient as well as a family. She was advised to continue the current medications and be on clear liquids for lunch today. Follow-up in the office in 3-4 months..
[2022-02-04 07:56] VITALS: BP 134/58; PULSE 44
== END 2022-02-04 08:07 | disposition home or self-care (01) ==
LOC: ORWHC2ENDO 06:10
PROVIDERS: ATTEND Internal Medicine Gastroenterology
DX: K22.4 Dyskinesia of esophagus (principal); K44.9 Diaphragmatic hernia without obstruction or gangrene
CPT/HCPCS: 43249; 43247; J2704; C1726

== ENCOUNTER → 2022-05-03 | Outpatient (CLI) | payer MEDICARE ==
--- NOTE | 2022-05-03 10:17 | CT ---
EXAMINATION TYPE: CT brain wo con DATE OF EXAM: 05/03/2022 COMPARISON: None HISTORY: 71-year-old female R51.9, Headache TECHNIQUE: Examination was done in axial plane without intravenous contrast. Coronal and sagittal r econstructions performed. CT DLP: 1121 mGycm Automated exposure control for dose reduction was used. FINDINGS: There is no evidence of acute intracranial hemorrhage, acute ischemic changes, mass, mass-effect, or extra-axial fluid collection. There is no effacement of cerebral sulci or basal subarachnoid cister ns. There is no hydrocephalus. There is no midline shift. Hoff-white matter distinction is preserv ed. Paranasal sinuses and mastoid air cells well pneumatized. Orbits and globes are intact. IMPRESSION: No acute intracranial abnormality seen.
== END | disposition home or self-care (01) ==
LOC: RADCTMAIN 08:09
PROVIDERS: ATTEND Family Medicine
DX: R51.9 Headache, unspecified (principal)
CPT/HCPCS: 70450

== ENCOUNTER 2022-12-20 09:25 | Day surgery (SDC) | payer MEDICARE ==
[2022-12-15 14:10] VITALS: BMI 25.7
[~2022-12-20 09:25] MED LIST changes: -LIDOCAINE 1% (10MG/ML) FOR IV START INTRADERMA PRN
[2022-12-20 10:10] VITALS: TEMP 98.2
[2022-12-20] MEDS ORDERED: LIDOCAINE 2% INJ 20 MG/ML (2 ML VIAL) ONE (10:22)
[2022-12-20] MEDS ORDERED: PROPOFOL 10 MG/ML 20 ML VIAL IV ONE (10:22)
--- NOTE | 2022-12-20 10:35 | P.PCN ---
Date of Procedure: 12/20/22 Procedure(s) Performed: BRIEF HISTORY: Patient is a 72-year-old pleasant white female scheduled for an elective colonoscopy as a part of screening for colon cancer. PROCEDURE PERFORMED: Colonoscopy with biopsy. PREOPERATIVE DIAGNOSIS: Screening for colon cancer. IV sedation per Anesthesia. PROCEDURE: After informed consent was obtained, the patient, was brought into the endoscopy unit. IV sedation was administered by Anesthesia under continuous monitoring. Digital rectal examination was normal. Initially the Olympus CF-160 flexible video colonoscope was then inserted in the rectum, gradually advanced into the cecum without any difficulty. Careful examination was performed as the scope was gradually being withdrawn. Ileocecal valve and the appendiceal orifice were visualized and appeared normal. Prep was excellent. Mucosa of the cecum, ascending colon, appeared normal. The transverse colon there was a 5 mm sessile polyp removed by cold biopsy. Rest of the transverse colon, descending colon, sigmoid colon, and rectum appeared normal. Scattered sigmoid diverticula seen.Retroflexion was performed in the rectum and no lesions were seen. The patient tolerated the procedure well. IMPRESSION: 5 mm transverse colon polyp status post-cold biopsy Scattered sigmoid diverticulosis Recommendations: Findings of this examination were discussed with the patient as well as a family. She was advised to follow with the biopsy results. If the biopsy results adenoma she can have a repeat colonoscopy in 5 years
[2022-12-20 10:54] VITALS: BP 116/76; PULSE 52; RESP 20
== END 2022-12-20 11:15 | disposition home or self-care (01) ==
LOC: ORWHC2ENDO 09:25
PROVIDERS: ATTEND Internal Medicine Gastroenterology
DX: Z12.11 Encounter for screening for malignant neoplasm of colon (principal); D12.3 Benign neoplasm of transverse colon; K57.30 Diverticulosis of large intestine without perforation or abscess without bleeding; I10 Essential (primary) hypertension; E78.5 Hyperlipidemia, unspecified; K21.9 Gastro-esophageal reflux disease without esophagitis; K44.9 Diaphragmatic hernia without obstruction or gangrene; Z88.8 Allergy status to other drugs, medicaments and biological substances; Z79.82 Long term (current) use of aspirin; Z79.899 Other long term (current) drug therapy; Z98.890 Other specified postprocedural states
CPT/HCPCS: 45380; J2704; J2001; 88305

== ENCOUNTER 2024-02-20 10:02 | Day surgery (SDC) | payer MEDICARE ==
[2024-02-16 12:02] VITALS: BMI 23.9
[2024-02-20] MEDS ORDERED: PROPOFOL 10 MG/ML 20 ML VIAL IV ONE (10:13)
[2024-02-20] MEDS ORDERED: LIDOCAINE 1% (10MG/ML) FOR IV START INTRADERMA PRN (10:21)
[2024-02-20] MEDS: LACTATED RINGERS 1,000 ML IV SCH (10:32)
--- NOTE | 2024-02-20 11:19 | P.PCN ---
Date of Procedure: 02/20/24 Procedure(s) Performed: BRIEF HISTORY: Patient is a 73-year-old, pleasant, white female scheduled for an upper endoscopy as a part of evaluation of intermittent dysphagia to solids for the last few months duration.. PROCEDURE PERFORMED: Esophagogastroduodenoscopy with biopsy. PREOPERATIVE DIAGNOSIS: Intermittent dysphagia to solids. IV sedation per anesthesia. PROCEDURE: After informed consent was obtained, the patient was brought into the endoscopy unit. IV sedation was administered by Anesthesia under continuous monitoring. Initially the Olympus GIF-140 video endoscope was inserted into the mouth. Esophagus intubated without any difficulty. It was gradually advanced into the stomach and duodenum and carefully examined. The bulb and the second part of the duodenum appeared normal. The scope at this time was withdrawn to the stomach, adequately insufflated with air, and upon careful examination, mucosa of the antrum, and mild gastritis and biopsies were done from this area. Multiple small gastric polyps noted in the gastric body which were biopsied. Rest of the body, cardia and the fundus appeared normal. The scope was then withdrawn into the esophagus. The GE junction was located at 39 cm from the incisors. The esophagus appeared normal. There were no erosions or ulcerations s een. Biopsies were done from the distal esophagus. No evidence of esophageal stricture. There was evidence of some esophageal dysmotility and the patient tolerated the procedure well. IMPRESSION: 1. Mild antral gastritis. 2. Small gastric polyps 3. No evidence of esophagitis or esophageal stricture. RECOMMENDATIONS: The findings of this examination were discussed with the patient as well as her family. She was advised to follow-up with the biopsy. Continue with omeprazole 20 mg daily and follow antireflux measures. If she continues to have persistent dysphagia she needs to be investigated further with esophageal manometry.
[2024-02-20 11:46] VITALS: BP 159/82; PULSE 56; RESP 14; TEMP 98.3
== END 2024-02-20 12:19 | disposition home or self-care (01) ==
LOC: ORWHC2ENDO 10:02
PROVIDERS: ATTEND Internal Medicine Gastroenterology
DX: K29.50 Unspecified chronic gastritis without bleeding (principal); K31.7 Polyp of stomach and duodenum; I10 Essential (primary) hypertension; E78.5 Hyperlipidemia, unspecified; Z87.891 Personal history of nicotine dependence; F41.9 Anxiety disorder, unspecified; K21.9 Gastro-esophageal reflux disease without esophagitis; Z98.890 Other specified postprocedural states; Z79.899 Other long term (current) drug therapy; Z79.82 Long term (current) use of aspirin
CPT/HCPCS: 88305; 43239; J2704